=== PATIENT | male | born 1975 | race Caucasian/White ===

== ENCOUNTER 2017-01-05 11:37 | Emergency (ER) | payer OTHER ==
[~2017-01-05] VITALS: Ht 157.5 cm; Wt 80.0 kg
[2017-01-05 11:39] VITALS: Ht 157.5 cm; Wt 80.0 kg
[2017-01-05] MEDS ORDERED: NAPR-260 PO (14:44)
--- NOTE | 2017-01-05 19:44 | ERD ---
ER Documentation Chief Complaint Date/Time DATE: 01/05/17 TIME: 19:41 Chief Complaint NUMBNESS BOTH HANDS X 6 MOS, USED DRILLS AT WORK HPI Patient is a 41-year-old male who presents to the ED with bilateral hand numbness for 6 months. He states that he uses drills and carries a lot of boxes at work and uses his wrist all day. He states that at night he develops numbness and tingling in his bilateral hands. He denies headache, dizziness, neck pain or stiffness. Denies chest pain, shortness of breath or difficulty breathing. He has not taken any medications for his symptoms. He has no pain in his elbows. No other complaints. ROS All systems reviewed and are negative except as per history of present illness. Medications Home Meds Active Scripts Naproxen* (Naprosyn*) 500 Mg Tablet, 500 MG PO BID Y for PAIN AND/OR INFLAMMATION, #30 TAB Prov:CORTNEY ORTEGA PA-C 01/05/17 PMhx/Soc Medical and Surgical Hx: pt denies Medical Hx, pt denies Surgical Hx History of Surgery: No Anesthesia Reaction: No Hx Neurological Disorder: No Hx Respiratory Disorders: No Hx Cardiac Disorders: No Hx Psychiatric Problems: No Hx Miscellaneous Medical Probl: No Hx Alcohol Use: No Hx Substance Use: No Hx Tobacco Use: No Physical Exam Vitals Vital Signs Date Time Temp Pulse Resp B/P Pulse Ox O2 Delivery O2 Flow Rate FiO2 01/05/17 11:39 98.1 90 18 138/68 99 Physical Exam GENERAL: Well-developed, well-nourished male. Appears in no acute distress. LUNG: Clear to auscultation bilaterally. No rhonchi, wheezing, rales or coarse breath sounds. HEART: Regular rate and rhythm. No murmurs, rubs or gallops. Extremities: Equal pulses bilaterally. No peripheral clubbing, cyanosis or edema. No unilateral leg swelling. Positive Phalen's test. Pulses intact bilaterally. Radius, ulnar and median nerve intact. No deformities or step- offs. No snuffbox tenderness. NEUROLOGIC: Alert and oriented. Moving all four extremities. 5/5 strength in all extremities. Normal speech. Steady gait. SKIN: Normal color. Warm and dry. No rashes or lesions. Capillary refill < 2 seconds Procedures/MDM ER COURSE: I kept the patient and/or family informed of laboratory and diagnostic imaging results throughout the emergency room course. MEDICAL DECISION MAKING: This is a 41-year-old male who presents with bilateral hand pain and numbness for 6 months. Vital signs were reviewed. Patient is afebrile. Patient is not hypoxic. She is not toxic or ill-appearing. Patient likely has carpal tunnel syndrome of his bilateral wrist. Phalen's test was positive. I do not think it x-ray is warranted at this time as he does not have tenderness on exam and there is no acute injury or trauma. This is a chronic situation. Low suspicion for dislocation, fracture, septic joint, compartment syndrome, osteomyelitis, cellulitis, avascular necrosis, neurological injury, vascular injury, tendon laceration. Patient was given bilateral Velcro wrist splints. Neurovascularly intact post placement. DISCHARGE: At this time, patient is stable for discharge and outpatient management with no new complaints during the ER course. Patient was sent home with information regarding carpal tunnel syndrome, Naprosyn and neutral wrist splints. I advised patient that he should be wearing these at sleep and while he is working. I also gave names of primary care is in the area for patient to follow -up with. Note was given for work as well.. Patient will be discharged home with instructions to recheck for new or worsening symptoms such as fever, nausea , weakness, LOC and to follow up with primary care in the next 1-2 days. Patient was advised to return to the ER for any new or worsening symptoms. Plan was discussed and patient and/or family understands and agrees. Home instructions were given. Departure Diagnosis: Primary Impression: Carpal tunnel syndrome on both sides Condition: Stable Patient Instructions: Carpal Tunnel Syndrome Prevention Tips, Carpal Tunnel Referrals: [facility] YOU HAVE RECEIVED A MEDICAL SCREENING EXAM AND THE RESULTS INDICATE THAT YOU DO NOT HAVE A CONDITION THAT REQUIRES URGENT TREATMENT IN THE EMERGENCY DEPARTMENT. FURTHER EVALUATION AND TREATMENT OF YOUR CONDITION CAN WAIT UNTIL YOU ARE SEEN IN YOUR DOCTORS OFFICE WITHIN THE NEXT 1-2 DAYS. IT IS YOUR RESPONSIBILITY TO MAKE AN APPOINTMENT FOR FOLOW-UP CARE. IF YOU HAVE A PRIMARY DOCTOR --you should call your primary doctor and schedule an appointment IF YOU DO NOT HAVE A PRIMARY DOCTOR YOU CAN CALL OUR PHYSICIAN REFERRAL HOTLINE AT IF YOU CAN NOT AFFORD TO SEE A PHYSICIAN YOU CAN CHOSE FROM THE FOLLOWING [facility] [id number] [facility] [address] [facility]. [facility] [address] [facility] [address] [facility] [address] [facility]. [facility] [address] Additional Instructions: Call your primary care doctor TOMORROW for an appointment during the next 1-2 days.See the doctor sooner or return here if your condition worsens before your appointment time. CORTNEY ORTEGA PA-C Jan 05, 2017 19:44
== END 2017-01-05 15:15 | disposition home or self-care (01) ==
LOC: FTE 11:37
DX: G56.03 Carpal tunnel syndrome, bilateral upper limbs (principal)
CPT/HCPCS: 29125; Z7502